=== PATIENT | male | born 1945 | race Caucasian/White ===

== ENCOUNTER → 2018-09-27 07:58 | Outpatient (CLI) | payer OTHER, SELFPAY ==
[2018-09-29 13:41] LABS: Fecal Immunochemical Test NOT DETECTED
== END ==
PROVIDERS: PCP Physician Assistant; Visit Provider Physician Assistant
DX: Z12.11 Encounter for screening for malignant neoplasm of colon (principal); Z86.010 Personal history of colon polyps
CPT/HCPCS: 82274

== ENCOUNTER 2019-09-18 09:29 | Emergency (ER) | payer OTHER, SELFPAY ==
[2019-09-18 09:30] VITALS: BP 170/79; PULSE 93; RESP 12
[2019-09-18 09:36] VITALS: BP 170/79; PULSE 84; RESP 19; TEMP 36.5; O2SAT 98; BMI 25.5
--- NOTE | 2019-09-18 09:39 | DI.RAD.S_ITS ---
PROCEDURE: XR CHEST 1V INDICATIONS: chest pain TECHNIQUE: One view of the chest was acquired. COMPARISON: [facility], , CHEST 1 VIEW, 03/18/2017, 16:28. FINDINGS: Surgical changes and devices: None. Lungs and pleura: Lungs are clear. No pleural effusions or pneumothorax. Mediastinum: Mediastinal contours appear normal. Heart size is enlarged. Bones and chest wall: No suspicious bony lesions. Overlying soft tissues appear unremarkable. IMPRESSION: No acute pulmonary process. Dictated by: Jamilah Garvin M.D. on 09/18/2019 at 10:06 Approved by: Jamilah Garvin M.D. on 09/18/2019 at 10:09
--- NOTE | 2019-09-18 09:42 | ED_ITS ---
HPI - Chest Pain General Chief Complaint: Chest Pain Stated Complaint: possible heart issue Time Seen by Provider: 09/18/19 09:40 Source: patient Mode of arrival: Ambulatory Limitations: no limitations History of Present Illness HPI narrative: 74-year-old male who is otherwise healthy and takes no medications. Has had a prior history of atrial fibrillation but is not on any anticoagulation or medication for this. His last episode was approximately 2-3 years ago. Here for evaluation of multiple symptoms. Patient states that he has been lightheaded. Also has had a lack of energy. Occasionally has an irregular heartbeat expect she when he is at rest. Is not associated chest pain or problems breathing or passing out. The symptoms been going on for least the past year. He also noticed that he has had mild chest pressure. No pain. He states that is daily. He has had it consistently for the past month. Also states he has episodes where his arm gets cold and also the toes on his right feet get cold. States he contacted his primary doctor the end of last week and was told to come to emergency department for these symptoms however he decided to wait until today. Related Data Home Medications Medication Instructions Recorded Confirmed No Known Home Medications 09/18/19 09/18/19 Allergies Allergy/AdvReac Type Severity Reaction Status Date / Time sodium fluoride Allergy Severe Shakiness Verified 09/18/19 11:08 [From PreviDent] pine zakiya Allergy Severe Difficulty Uncoded 09/18/19 11:08 Breathing Review of Systems Constitutional Constitutional: Reports chills, Reports fatigue, Denies fever(s), Denies headache(s), Reports lethargy and Reports malaise ENT Ears, Nose, Mouth, and Throat: Denies vertigo, Denies headache(s) and Reports disequilibrium Cardiovascular Cardiovascular: Reports chest pain, Denies rapid heart rate, Denies edema, Denies palpitations and Reports dyspnea Respiratory Respiratory: Reports dyspnea Gastrointestinal Gastrointestinal: Denies abdominal pain, Denies nausea and Denies vomiting Genitourinary Genitourinary: Denies dysuria Musculoskeletal Musculoskeletal: Denies myalgias, Denies arthralgias and Reports tingling Integumentary/Breasts Skin/Breast: Denies lesions and Denies rash Neurologic Neurologic: Denies confusion, Denies vertigo, Denies headache(s), Reports tingling, Reports paresthesias and Reports disequilibrium Psychiatric Psychiatric: Denies confusion Endocrine Endocrine: Reports fatigue and Denies palpitations Hematologic/Lymphatic Hematologic/Lymphatic: Denies easy bleeding and Denies easy bruising Patient History Medical History Atrial fibrillation (Inactive 02/01/13) Degeneration of intervertebral disc of cervical region (10/26/17) Elevated blood pressure reading without diagnosis of hypertension (Inactive) Flushing (Inactive) History of colonic polyps (02/01/13) History of renal calculi (Inactive 02/01/13) Hyperlipidemia (Inactive 02/01/13) Paroxysmal a-fib (Inactive) Surgical History (Updated 03/22/18 @ 05:59 by Conversion Provider) Status post hernia repair Social History Smoking Status: Never smoker alcohol intake frequency: holidays/special occasions only Substance Use Type: does not use Exam Initial Vital Signs Initial Vital Signs: Vital Signs Pulse Rate 93 H 09/18/19 09:30 Respiratory Rate 12 09/18/19 09:30 Blood Pressure 170/79 H 09/18/19 09:30 Const General: cooperative, comfortable and well developed Orientation: alert, awake and oriented x3 HENMT Head: normal to inspection and normocephalic Resp Effort & Inspection: normal respiratory effort Auscultation: clear to auscultation bilaterally Cardio Rate: regular rate Rhythm: regular rhythm Pulses: radial pulses present GI Inspection: non-distended Palpation: soft, No firm and No tender Skin Lesions: no lesions Rashes: no rashes Neuro General: awake Cognition: normal cognition Speech: speech normal Motor: muscle tone normal throughout Extrem General: normal to inspection and capillary refill normal Psych Appearance: grossly normal and well kempt Course Orders Ordered: ED Orders 09/18/19 09:39 XR chest 1V Stat 09/18/19 09:41 EKG-12 Lead Stat 09/18/19 09:50 Complete Blood Count AUTO DIFF Stat Comprehensive Metabolic Panel Stat Lipase Stat Partial Thromboplastin Time Stat Prothrombin Time INR Stat Troponin & CK Cardiac Panel Stat Discontinued Medications Aspirin (Aspirin Chew) 324 mg PO NOW ONE Stop: 09/18/19 09:45 Last Admin: 09/18/19 10:30 Dose: 324 mg Documented by: CASSY Vital Signs Vital signs: Vital Signs - 8 hr 09/18/19 09:30 09/18/19 09:36 09/18/19 10:00 Temperature 97.7 F Pulse Rate 93 H 84 77 Respiratory Rate 12 19 15 Blood Pressure 170/79 H Blood Pressure [Left Arm] 170/79 H 157/89 H Pulse Oximetry 98 94 09/18/19 10:30 09/18/19 11:00 Temperature Pulse Rate 75 72 Respiratory Rate 15 14 Blood Pressure Blood Pressure [Left Arm] 138/75 140/74 Pulse Oximetry 95 94 MDM - Chest Pain Lab Data Attestation: I reviewed the patient's lab results. Result diagrams: 09/18/19 09:50 09/18/19 09:50 Labs: Lab Results 09/18/19 09/18/19 09/18/19 Range/Units 09:50 09:50 09:50 WBC 5.5 (4.5-11.0) X10^3/uL RBC 4.86 (4.5-5.9) X10^6/uL Hgb 15.4 (13.5-17.5) g/dL Hct 43.7 (41-53) % MCV 89.9 (80-100) fL MCH 31.8 (26-34) PG MCHC 35.3 (30-36) % RDW 13.6 (11.6-14.8) % Plt Count 248 (150-400) X10^3/uL Neut % (Auto) 60.3 (50-75) % Lymph % (Auto) 28.1 (25-40) % Meriwether % (Auto) 8.5 (3-14) % Eos % (Auto) 2.6 (2-4) % Baso % (Auto) 0.5 (0-2) % Neut # (Auto) 3300 (7961-2044) /uL Lymph # (Auto) 1500 (2956-9240) /uL Mer[place]ether # (Auto) 500 (0-900) /uL Eos # (Auto) 100 (0-450) /uL Baso # (Auto) 0 (0-100) /uL PT 11.8 (10.1-12.7) SECONDS INR 1.0 (0.9-1.3) APTT 29 (26.4-36.2) SECONDS Sodium 141 (137-145) mmol/L Potassium 4.4 (3.4-5.1) mmol/L Chloride 106 (98-107) mmol/L Carbon Dioxide 26 (22-32) mmol/L BUN 22 H (9-20) mg/dL Creatinine 1.10 (0.66-1.25) mg/dL Estimated GFR > 60.0 (>60) mL/min BUN/Creatinine Ratio 20.0 (6-22) Glucose 110 (80-110) mg/dL Calcium 9.5 (8.4-10.2) mg/dL Total Bilirubin 0.6 (0.2-1.3) mg/dL AST 25 (17-59) IU/L ALT 23 (21-72) IU/L Alkaline Phosphatase 86 (38-126) U/L Total Creatine Kinase 50 L (55-170) U/L CK-MB (CK-2) TNP CK-MB (CK-2) Rel Index TNP Troponin I < 0.012 (0.01-0.034) ng/mL Total Protein 7.9 (6.3-8.2) g/dL Albumin 4.4 (3.5-5.0) g/dL Globulin 3.5 (1.7-4.1) g/dL Albumin/Globulin Ratio 1.3 (1.0-2.8) Lipase 110 (23-300) U/L Imaging Data Chest x-ray: Radiologist's impression: [place] [address] XRay Report Signed Patient: Juan Huddleston GMR#: [id number] : 4Acct:[id number] Age/Sex: 74 / MDate of Service: 09/18/19 Loc: ED Accession Number: [id number] Procedure: XR chest 1V Ordering Provider: Marc Black D.O. PROCEDURE: XR CHEST 1V INDICATIONS: chest pain TECHNIQUE: One view of the chest was acquired. COMPARISON: [facility] , CHEST 1 VIEW, 03/18/2017, 16:28. FINDINGS: Surgical changes and devices: None. Lungs and pleura: Lungs are clear. No pleural effusions or pneumothorax. Mediastinum: Mediastinal contours appear normal. Heart size is enlarged. Bones and chest wall: No suspicious bony lesions. Overlying soft tissues appear unremarkable. IMPRESSION: No acute pulmonary process. Dictated by: Jamilah Garvin M.D. on 09/18/2019 at 10:06 Approved by: Jaimlah Garvin M.D. on 09/18/2019 at 10:09 ECG Data Attestation: I personally reviewed and interpreted this ECG as follows: Prior ECG tracings: available for review Interpretation: Sinus rhythm Ventricular rate 88 Normal QRS Normal QTC ST depression V3 V4 which are new compared to prior EKG. No other new changes. MDM Narrative Medical decision making narrative: All of the patient's symptoms have been going on for greater than 30 days. Some of his symptoms to include the palpitations and lightheadedness have been going on for the past year. Has had constant chest discomfort for the past month. He does have ST depressions on his EKG however his troponin is negative. He describes no chest pain. I feel that his symptoms are less likely ACS. I did discuss with him however that it is important that he follow up with his primary doctor for a stress test. Also some concern that he potentially is having frequent PVCs due to his descriptions of the symptoms. He could potentially be having paroxysmal atrial fibrillation. He has had atrial fibrillation in the past. He had no ectopy on his monitor today. Will hold on further workup for now. I feel that there is no emergent condition given the length that he has had symptoms. He will follow up with his primary provider. He expressed understanding and agreement with plan. Discharge Plan Departure Patient Disposition: Home Clinical Impression: Lightheadedness, Intermittent palpitations Instructions: DI for Dizziness-Nonvertigo, DI for Palpitations Activity Restrictions/Additional Instructions: Recommend that you contact your primary provider to discuss the indications for a Holter monitor and stress testing. Return to the emergency department for any new or worsening symptoms Prescriptions: No Action No Known Home Medications RF: 0 Referrals: Jen Salazar PA-C [Primary Care Provider] -
[2019-09-18 10:00] VITALS: BP 157/89; PULSE 77; RESP 15; O2SAT 94
[2019-09-18 10:07] LABS: Add Manual Diff / Slide Review NO; Basophils Absolute Auto 0 /uL (0-100); Basophils Percent Auto 0.5 % (0-2); Eosinophils Absolute Auto 100 /uL (0-450); Eosinophils Percent Auto 2.6 % (2-4); Hematocrit 43.7 % (41-53); Hemoglobin 15.4 g/dL (13.5-17.5); Lymphocytes Absolute Auto 1500 /uL (1100-4500); Lymphocytes Percent Auto 28.1 % (25-40); Mean Corpuscular HGB Conc 35.3 % (30-36); Mean Corpuscular Hemoglobin 31.8 PG (26-34); Mean Corpuscular Volume 89.9 fL (80-100); Monocytes Absolute Auto 500 /uL (0-900); Monocytes Percent Auto 8.5 % (3-14); Neutrophils Absolute Auto 3300 /uL (1500-7000); Neutrophils Percent Auto 60.3 % (50-75); Platelet Count 248 X10^3/uL (150-400); Red Blood Cell Count 4.86 X10^6/uL (4.5-5.9); Red Cell Distribution Width 13.6 % (11.6-14.8); White Blood Cell Count 5.5 X10^3/uL (4.5-11.0)
[2019-09-18 10:10] LABS: Prothrombin Time 11.8 SECONDS (10.1-12.7)
[2019-09-18 10:13] LABS: PTT Partial Thromboplastin Tim 29 SECONDS (26.4-36.2)
[2019-09-18 10:15] LABS: Alanine Aminotransferase 23 IU/L (21-72); Albumin 4.4 g/dL (3.5-5.0); Albumin Globulin Ratio 1.3 (1.0-2.8); Alkaline Phosphatase 86 U/L (38-126); Aspartate Aminotransferase 25 IU/L (17-59); Bilirubin Total 0.6 mg/dL (0.2-1.3); Blood Urea Nitrogen 22 mg/dL (9-20); Calcium 9.5 mg/dL (8.4-10.2); Carbon Dioxide 26 mmol/L (22-32); Chloride 106 mmol/L (98-107); Creatine Kinase 50 U/L (55-170); Estimated Glomerular Filt Rate > 60.0 mL/min (>60); Globulin 3.5 g/dL (1.7-4.1); Glucose 110 mg/dL (80-110); HEMOLYSIS < 15 (0-50); Lipase 110 U/L (23-300); Potassium 4.4 mmol/L (3.4-5.1); Sodium 141 mmol/L (137-145); Total Protein 7.9 g/dL (6.3-8.2)
[2019-09-18 10:27] LABS: Troponin I < 0.012 ng/mL (0.01-0.034)
[2019-09-18 10:30] VITALS: BP 138/75; PULSE 75; RESP 15; O2SAT 95
[2019-09-18] MEDS: ASPIRIN 81 MG CHEW TAB 324 MG PO (10:30)
[2019-09-18 11:00] VITALS: BP 140/74; PULSE 72; RESP 14; O2SAT 94
[2019-09-18 11:30] VITALS: BP 138/79; PULSE 74; RESP 19; O2SAT 95
== END 2019-09-18 11:45 | disposition home or self-care (01) ==
PROVIDERS: Emergency Provider Emergency Medicine; Family Provider Physician Assistant; PCP Physician Assistant
DX: R42 Dizziness and giddiness (principal); R00.2 Palpitations
CPT/HCPCS: 36415; 71045; 80053; 82550; 83690; 84484; 85025; 85610; 85730; 93005; 93010; 99283; 99285

== ENCOUNTER → 2019-10-04 07:31 | Outpatient (CLI) | payer OTHER, SELFPAY ==
--- NOTE | 2019-10-20 07:56 | P.HOLT.S_ITS ---
[employer] Dressing Machine Feeder Report Referral & Results Date Patient Seen: 10/04/19 Requesting provider: Alisa Sears Indication: Dizziness Duration of monitoring (days): 7 Diary information: There were 58 patient triggered events and 0 diary entries Patient triggered events were associated with sinus rhythm, PACs, PVCs, SVT, and ventricular trigeminy Data: Minimum heart rate identified was 45 beats per minute at 11:01 on 10/05/2019 Maximum sinus heart rate was 113 beats per minute at 20:26 on 10/10/2019 Maximum overall heart rate was 171 beats per minute at 09:18 on 10/08/2019 during a 12 beat run of supraventricular tachycardia Less than 1% of identified beats were supraventricular ectopic in origin Approximately 1.3% of identified beats were ventricular ectopic in origin including up to 8.2 seconds of ventricular trigeminy which was associated with a patient triggered event as above There were 10 runs of SVT the longest lasting 13 beats at 119 beats per minute which suggest some of these runs were probably atrial tachycardia rather than true SVT Impression: Ventricular supraventricular dysrhythmias as above including relatively brief runs of ventricular trigeminy Clinical correlation suggested
== END ==
PROVIDERS: Family Provider Physician Assistant; PCP Physician Assistant; Visit Provider Hospitalist
DX: R42 Dizziness and giddiness (principal)
CPT/HCPCS: 0296T; 0298T

== ENCOUNTER → 2019-11-02 06:59 | Outpatient (CLI) | payer OTHER, SELFPAY ==
--- NOTE | 2019-11-02 08:14 | PM.TREADMILL ---
Cardiac Stress Test Report Referral & Results Date Patient Seen: 11/02/19 Time Patient Seen: 08:00 Requesting provider: Jen Salazar Indication: Chest pain Rest ECG: Normal sinus rhythm Procedure Note: Today following both written and verbal informed consent, the patient was exercised according to a standard Georges protocol. The patient exercised for a total of 7 minutes 22 seconds achieving a maximum heart rate of 152. Patient's maximum systolic blood pressure was 180. This was an estimated 10.1 METs. Mild pain in the left lower back with exercise. No other signs or symptoms of angina. Occasional PVCs. AMELIA-10% on the active scale. Diffuse [address] depressions in precordial leads. Baseline artifact while exercising makes interpretation a little bit difficult. Normal hemodynamic response to exercise. Impression: Intermediate probability for ischemia. Britt treadmill score of -2 is correlated with a 90% 5 year survival for cardiac causes. Consider Cardiolite follow-up if clinically indicated. Please note: Actual ECG tracings can be found in the PACS system.
== END ==
PROVIDERS: PCP Physician Assistant; Visit Provider Physician Assistant
DX: R07.9 Chest pain, unspecified (principal); R42 Dizziness and giddiness
CPT/HCPCS: 93016; 93017; 93018

== ENCOUNTER → 2020-01-09 06:37 | Outpatient (CLI) | payer OTHER, SELFPAY ==
[2020-01-09 09:10] LABS: Cholesterol 203 mg/dL (140-199); HDL Cholesterol 35 mg/dL (40-60); LDL Cholesterol Calculated 143 mg/dL (<100); Triglycerides 125 mg/dL (35-150)
== END ==
PROVIDERS: PCP Family Medicine; Referring Provider Internal Medicine Cardiovascular Disease; Visit Provider Internal Medicine Cardiovascular Disease
DX: I10 Essential (primary) hypertension (principal)
CPT/HCPCS: 36415; 80061

== ENCOUNTER 2020-06-13 11:21 | Emergency (ER) | payer OTHER, SELFPAY ==
[2020-06-13 11:33] VITALS: BP 172/89; PULSE 79; RESP 16; TEMP 36.9; O2SAT 98
--- NOTE | 2020-06-13 11:47 | PC.NURSE ---
Pt lacerated R anterior thumb between the 1st and 2nd joint when cutting sheet metal. refusing tetanus. wound well approximated and bleeding controlled. 2+ pulse. +CSM. Appears to need suturing for depth.
--- NOTE | 2020-06-13 11:54 | ED_ITS ---
HPI - Extremity Injury (Upper) <JIM Ballard - Last Filed: 06/13/20 13:49> General Chief Complaint: Extremity Injury, Upper Stated Complaint: cut on right hand thumb Time Seen by Provider: 06/13/20 11:36 Source: patient Mode of arrival: Ambulatory Limitations: no limitations History of Present Illness HPI narrative: The patient is a 74-year-old male nonsmoker with history of a fib who presents with a chief complaint of a laceration to his right thumb. He states he was cut by sheet metal while replacing a roof on a chicken coop. He states he has full range of motion of his right thumb. States happened approximately 90 minutes prior to arrival. The patient has never taken a tetanus vaccination in adamantly declines tetanus vaccination in today. He presents requesting Steri-Strips. He washed it out with water prior to arrival. Related Data Home Medications Medication Instructions Recorded Confirmed diltiazem HCl 120 mg 120 mg PO DAILY 01/16/20 01/16/20 capsule,extended release 24 hr Allergies Allergy/AdvReac Type Severity Reaction Status Date / Time caffeine AdvReac Verified 01/16/20 09:10 parodontax AdvReac Severe Tremors Uncoded 01/16/20 09:10 pine zakiya AdvReac Severe Difficulty Uncoded 01/16/20 09:10 Breathing Review of Systems <JIM Ballard - Last Filed: 06/13/20 13:49> Review of Systems Narrative: GENERAL: Denies chills, fatigue, malaise, fever, sweats. HEENT: Denies sinus pain, ear pain, sore throat, difficulty swallowing, dizziness. RESPIRATORY: Denies dyspnea, cough, wheezing, hemoptysis, sputum. CARDIOVASCULAR: Denies chest pain, palpitations, orthopnea, edema, GASTROINTESTINAL: Denies nausea, vomiting, abdominal pain, diarrhea, constipation, melena. : Denies dysuria, frequency, incontinence, hematuria, urinary retention. MUSCULOSKELETAL: See HPI SKIN: See HPI NEUROLOGIC: Denies weakness, headache, numbness, change in speech, confusion, seizures, incoordination. PSYCHIATRIC: No concerning psychosocial issues. 12 point review of systems is negative except for those stated above Patient History <JIM Ballard - Last Filed: 06/13/20 13:49> Medical History Atrial fibrillation (Inactive 02/01/13) Degeneration of intervertebral disc of cervical region (10/26/17) Elevated blood pressure reading without diagnosis of hypertension (Inactive) Flushing (Inactive) History of colonic polyps (02/01/13) History of renal calculi (Inactive 02/01/13) Hyperlipidemia (Acute 02/01/13) Paroxysmal a-fib (Chronic) Surgical History Status post hernia repair Social History Smoking Status: Never smoker Smoking Status: Never smoker alcohol intake frequency: holidays/special occasions only Substance Use Type: does not use Exam <ADA Ballard - Last Filed: 06/13/20 13:49> Narrative Exam Narrative: GENERAL: This is a well-nourished, well-developed patient, in no acute distress HEAD: Atraumatic. Normocephalic. No temporal or scalp tenderness. EYES: Pupils equal round and reactive. Extraocular motions intact. No scleral icterus. No injection or drainage. ENT: Nose without bleeding, purulent drainage or septal hematoma. Airway patent. NECK: Trachea midline. No JVD or lymphadenopathy. Supple, nontender, no meningeal signs. CARDIOVASCULAR: Regular rate and rhythm RESPIRATORY: No cough. No increased respiratory effort. No accessory muscle use. EXTREMITIES: Laceration as noted on right anterior thumb. Able to flex and extend right thumb against resistance. Capillary refill less than 2 seconds right thumb. Positive right radial pulse. BACK: Nontender without deformity or crepitance. No flank tenderness. NEURO: AOx3. SKIN: 2 cm linear laceration on anterior aspect right thumb between 1st and 2nd joints. Slight adipose tissue noted. Linear. No obvious foreign body. Initial Vital Signs Initial Vital Signs: Vital Signs Temperature 98.4 F 06/13/20 11:33 Pulse Rate 79 06/13/20 11:33 Respiratory Rate 16 06/13/20 11:33 Blood Pressure 172/89 H 06/13/20 11:33 Pulse Oximetry 98 06/13/20 11:33 <Sanjay Elena MD - Last Filed: 06/14/20 08:02> Initial Vital Signs Initial Vital Signs: Vital Signs Temperature 98.4 F 06/13/20 11:33 Pulse Rate 79 06/13/20 11:33 Respiratory Rate 16 06/13/20 11:33 Blood Pressure 172/89 H 06/13/20 11:33 Pulse Oximetry 98 06/13/20 11:33 Procedures <ADA Ballard - Last Filed: 06/13/20 13:49> Laceration Repair Laceration 1: Site: hand Side (If applicable): right Description: linear Depth: simple, single layer Pre-repair: wound explored, irrigated extensively (betasept ) and deep structures intact Skin layer closed with: steri-strips Scores <ADA Ballard - Last Filed: 06/13/20 13:49> GCS Enzo coma scale eye opening: Spontaneous [place] coma scale verbal response: Orientated [place] coma scale motor response: Obey commands Enzo coma scale total score: 15 Course <ADA Ballard - Last Filed: 06/13/20 13:49> Vital Signs Vital signs: Vital Signs - 8 hr 06/13/20 11:33 Temperature 98.4 F Pulse Rate 79 Respiratory Rate 16 Blood Pressure 172/89 H Pulse Oximetry 98 <Sanjay Elena MD - Last Filed: 06/14/20 08:02> Vital Signs Vital signs: Vital Signs - 8 hr 06/13/20 11:33 Temperature 98.4 F Pulse Rate 79 Respiratory Rate 16 Blood Pressure 172/89 H Pulse Oximetry 98 MDM - Extremity Injury (Upper) <ADA Ballard - Last Filed: 06/13/20 13:49> MDM Narrative Medical decision making narrative: The patient is a 74-year-old male who presents with a chief complaint of laceration to his right anterior thumb. He has full range of motion. Patient declines x-ray. Discussed possibility of foreign body, chip fracture, but patient states that the metal as ?clean and brand new.I discussed that does not necessarily indicate bacteria, and he allowed us to clean with Hibiclens and beta septic. Patient adamantly declined tetanus vaccination despite multiple offers, stating he never gets phlegm, has a grade immune system, does not get the flu vaccination and never gets the flu. The patient is neurovascular intact and has full range of motion. The patient declines sutures, I discussed repeatedly that I feel sutures would close this wound better, especially given that it opened slightly when he bends his thumb. He also has visible adipose tissue, however the patient repeatedly declined sutures but is willing to accept Steri-Strips. I discussed at length monitoring for signs and symptoms of infection redness swelling discharge etcetera. Encouraged follow-up with primary care provider if needed. The patient repeatedly declined sutures and tetanus vaccination. Patient has no questions or concerns upon discharge and states understanding of return precautions as well as follow-up care. Discharge Plan Departure Patient Disposition: Home Clinical Impression: Laceration Discharge Date/Time: 06/13/20 12:20 Instructions: DI for Laceration Repair-Skin Closure Strips Activity Restrictions/Additional Instructions: Thank you for trusting us with your care today. Please follow-up with primary care provider if needed. Please keep your laceration clean and dry. Do not submerging laceration and dirty water such as full water crouch water etcetera. This can increase her chance of infection. Monitor for signs and symptoms of infection such as redness purulent drainage etcetera. Please come back to the emergency department for any acute concerns Prescriptions: No Action diltiazem HCl 120 mg capsule,extended release 24hr 120 mg PO DAILY RF: 0 Referrals: Joseph Carr, [Primary Care Provider] -
--- NOTE | 2020-06-13 12:11 | PC.NURSE ---
pt refusing sutures. steri stripped by Aleta. refusing tetanus. Bulky dressing applied.
== END 2020-06-13 12:20 | disposition home or self-care (01) ==
PROVIDERS: Emergency Provider Nurse Practitioner Family; PCP Family Medicine
DX: S61.011A Laceration without foreign body of right thumb without damage to nail, initial encounter (principal); W26.8XXA Contact with other sharp object(s), not elsewhere classified, initial encounter
CPT/HCPCS: 99281

== ENCOUNTER → 2021-04-15 12:55 | Outpatient (CLI) | payer OTHER, SELFPAY ==
[2021-04-15 14:01] LABS: Hematocrit 44.6 % (41-53); Mean Corpuscular HGB Conc 33.7 % (30-36); Mean Corpuscular Hemoglobin 31.2 PG (26-34); Mean Corpuscular Volume 92.4 fL (80-100); Platelet Count 255 X10^3/uL (150-400); Red Blood Cell Count 4.82 X10^6/uL (4.5-5.9); Red Cell Distribution Width 13.6 % (11.6-14.8); White Blood Cell Count 6.8 X10^3/uL (4.5-11.0)
[2021-04-15 14:11] LABS: Hemoglobin A1C% w Est Avg Glu 5.6 % (4.0-6.0)
[2021-04-15 14:43] LABS: Alanine Aminotransferase 17 IU/L (<50); Albumin 4.2 g/dL (3.5-5.0); Albumin Globulin Ratio 1.2 (1.0-2.8); Alkaline Phosphatase 94 U/L (38-126); Aspartate Aminotransferase 25 IU/L (17-59); BUN Creatinine Ratio 17.1 (6-22); Bilirubin Total 0.4 mg/dL (0.2-1.3); Blood Urea Nitrogen 18 mg/dL (9-20); Calcium 9.6 mg/dL (8.4-10.2); Carbon Dioxide 30 mmol/L (22-32); Chloride 106 mmol/L (98-107); Estimated Glomerular Filt Rate > 60.0 mL/min (>60); Globulin 3.6 g/dL (1.7-4.1); Glucose 94 mg/dL (80-110); HEMOLYSIS < 15 (0-50); Potassium 5.2 mmol/L (3.4-5.1); Sodium 141 mmol/L (137-145); Total Protein 7.8 g/dL (6.3-8.2)
[2021-04-15 15:19] LABS: TSH w/ Reflex to FT4 1.59 uIU/mL (0.47-4.68)
[2021-04-15 15:32] LABS: Vitamin B12 347 pg/mL (239-931)
== END ==
PROVIDERS: PCP Family Medicine; Referring Provider Registered Nurse Diabetes Educator; Visit Provider Registered Nurse Diabetes Educator
DX: R20.2 Paresthesia of skin (principal); I10 Essential (primary) hypertension
CPT/HCPCS: 36415; 80053; 82607; 83036; 84443; 85027

== ENCOUNTER → 2021-04-23 17:32 | Outpatient (CLI) | payer OTHER, SELFPAY ==
--- NOTE | 2021-04-23 17:35 | DI.MRI.S_ITS ---
PROCEDURE: MR HEAD/BRAIN WO CON INDICATIONS: Head pressure and headache, balance issues TECHNIQUE: Non-contrast axial T1 spin echo, axial T2 fast spin echo, sagittal and axial FLAIR, coronal T2 fast spin echo, axial gradient echo, axial diffusion and ADC through the brain. COMPARISON: None. FINDINGS: Image quality: Excellent. CSF spaces: Ventricles appear symmetric in size and shape. Basal cisterns are patent. No extra-axial fluid collections. Brain: No intracranial bleeds or mass effects. There is cerebral volume loss for age. There are periventricular and deep white matter chronic small vessel ischemic changes. Brainstem appears normal. Diffusion-weighted images show no acute ischemic insults. No chronic ischemic insults. Normal intravascular flow voids are present. Skull and face: Calvarial bone marrow is normal in signal. Orbits are normal. Sinuses: Sinuses and mastoids are predominantly clear. IMPRESSION: No acute intracranial finding or other abnormality to explain symptoms. Mild global cerebral volume loss and chronic microvascular ischemic change. Dictated by: Remy Galaviz M.D. on 04/24/2021 at 9:01 Approved by: Remy Galaviz M.D. on 04/24/2021 at 9:03
== END ==
PROVIDERS: PCP Family Medicine; Referring Provider Registered Nurse Diabetes Educator; Visit Provider Registered Nurse Diabetes Educator
DX: R51.9 Headache, unspecified (principal); R26.89 Other abnormalities of gait and mobility; R42 Dizziness and giddiness
CPT/HCPCS: 70551

== ENCOUNTER 2021-11-06 21:39 | Observation (INO) | payer OTHER, SELFPAY ==
[2021-11-06 21:44] VITALS: PULSE 102; RESP 16; O2SAT 96
[2021-11-06 21:45] VITALS: BP 211/102; PULSE 100; PULSE 102; RESP 15; RESP 18; TEMP 37; O2SAT 93; O2SAT 95; BMI 24.4
--- NOTE | 2021-11-06 21:48 | DI.RAD.S_ITS ---
PROCEDURE: XR CHEST 1V INDICATIONS: chest pain TECHNIQUE: One view of the chest was acquired. COMPARISON: [facility], CR, XR CHEST 1V, 09/18/2019, 9:42. FINDINGS: Surgical changes and devices: None. Lungs and pleura: Shallow inspiration. Bibasilar atelectasis. No focal infiltrate. No pleural effusions or pneumothorax. Mediastinum: Mediastinal contours appear normal. Heart size is normal. Bones and chest wall: No suspicious bony lesions. Overlying soft tissues appear unremarkable. IMPRESSION: No acute cardiopulmonary disease. Dictated by: Kody Akins M.D. on 11/06/2021 at 22:25 Approved by: Kody Akins M.D. on 11/06/2021 at 22:25
--- NOTE | 2021-11-06 21:50 | ED.CHESTPAIN ---
HPI - Chest Pain General Chief Complaint: Chest Pain Stated Complaint: chest pain Time Seen by Provider: 11/06/21 21:47 Source: patient Mode of arrival: Ambulatory History of Present Illness HPI narrative: Patient is a 76-year-old male who presents his with chest palpitations. He has a history of hypertension for which he takes amlodipine for. He has had some issues with this most her recent 1st [employer] however the pharmacist has reassured him is by the same any fracture in the same dose. He took himself off of it for a couple of days but took a pill this morning. Throughout the day he has had intermittent chest palpitations he denies any shortness breath. He occasionally has a dull ache in his chest which lasts for 1-2 seconds. He has no nausea or vomiting. He denies any back pain no abdominal pain Related Data Home Medications Medication Instructions Recorded Confirmed amlodipine 5 mg tablet 5 mg PO DAILY 11/06/21 11/06/21 Allergies Allergy/AdvReac Type Severity Reaction Status Date / Time caffeine AdvReac Verified 11/06/21 21:47 parodontax AdvReac Severe Tremors Uncoded 11/06/21 21:47 pine zakiya AdvReac Severe Difficulty Uncoded 11/06/21 21:47 Breathing Review of Systems Review of Systems Narrative: GENERAL: Denies chills, fatigue, malaise, fever, sweats, travel HEENT: Denies sinus pain, ear pain, sore throat, difficulty swallowing, neck pain RESPIRATORY: Denies dyspnea, cough, wheezing, hemoptysis, sputum. CARDIOVASCULAR: See HPI GASTROINTESTINAL: Denies nausea, vomiting, abdominal pain, diarrhea, constipation, melena. : Denies dysuria, frequency, incontinence, hematuria, urinary retention, flank pain. MUSCULOSKELETAL: Denies weakness, joint pain, or bony pain SKIN: No rash, no erythema, no pruritus NEUROLOGIC: Denies weakness, dizziness, headache, numbness, change in speech, confusion PSYCHIATRIC: No concerning psychosocial issues. 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) Elevated blood pressure reading without diagnosis of hypertension Flushing History of colonic polyps (02/01/13) History of renal calculi (02/01/13) Hyperlipidemia (02/01/13) Hypertension Paroxysmal a-fib Surgical History Status post hernia repair Social History household members: significant other Smoking Status: Never smoker Smoking Status: Never smoker alcohol intake frequency: holidays/special occasions only Substance Use Type: does not use Exam Initial Vital Signs Initial Vital Signs: Vital Signs Pulse Rate 102 H 11/06/21 21:44 Respiratory Rate 16 11/06/21 21:44 Pulse Oximetry 96 11/06/21 21:44 GENERAL: Alert well-appearing 76-year-old male HEENT: Head atraumatic,EOMI, pupils reactive, face symmetric, moist mucous membranes CARDIOVASCULAR: Regular rate and rhythm without murmurs, rubs or gallops. RESPIRATORY: Breath sounds equal bilaterally, no wheezes rales or rhonchi. ABDOMEN: Soft, nontender. Normoactive bowel sounds all 4 quadrants. No guarding or rebound. EXTREMITIES: Normal range of motion, no clubbing or edema. Neurovascularly intact NEUROLOGICAL: Alert and oriented x4.Normal gait and speech. SKIN: Warm, dry, no laceration, no petechiae, no rashes or lesions. Course Orders Ordered: ED Orders 11/06/21 21:48 XR chest 1V Stat EKG-12 Lead Stat 11/06/21 21:50 Complete Blood Count AUTO DIFF Stat Comprehensive Metabolic Panel Stat Lipase Stat Magnesium Stat Troponin & CK Cardiac Panel Stat 11/06/21 23:50 Trop I [Troponin I] Stat Acetaminophen (Acetaminophen 325 Mg Tablet) 650 mg PO Q6HR PRN PRN Reason: Fever/Mild Pain (1-3) Hydrocodone Bitart/Acetaminophen (Hydrocodone/Acet 5/325 Tablet) 1 tab PO Q4HR PRN PRN Reason: Pain, Moderate (4-6) Al Hydrox/Mg Hydrox/Simethicone (Mag Hydrox/Alum/Simeth 30 Ml Udc) 30 ml PO Q6HR PRN PRN Reason: Dyspepsia Amlodipine Besylate (Amlodipine 5 Mg Tablet) 5 mg PO DAILY DARSHAN Morphine Sulfate (Morphine 2 Mg/Ml Inj) 2 mg IV Q4HR PRN PRN Reason: Pain, Severe (7-10) Naloxone HCl (Naloxone 0.4 Mg/Ml Vial) 0.2 mg IV Q2MIN PRN PRN Reason: Opiate Reversal Ondansetron HCl (Ondansetron 4 Mg Odt) 4 mg PO Q8HR PRN PRN Reason: Nausea And Vomiting Discontinued Medications Aspirin (Aspirin 81 Mg Chew Tab) 324 mg PO NOW ONE Stop: 11/06/21 22:56 Last Admin: 11/06/21 22:57 Dose: Not Given Documented by: LORENE Aspirin (Aspirin 81 Mg Chew Tab) 324 mg PO NOW ONE Stop: 11/06/21 22:56 Last Admin: 11/06/21 23:00 Dose: 324 mg Documented by: LORENE Nitroglycerin (Nitroglycerin 0.4 Mg Sl Tab) 0.4 mg SL NOW ONE Stop: 11/06/21 22:56 Last Admin: 11/06/21 23:00 Dose: 0.4 mg Documented by: LORENE Vital Signs Vital signs: Vital Signs - 8 hr 11/06/21 21:44 11/06/21 21:45 11/06/21 22:00 Temperature 98.6 F Pulse Rate 102 H 102 H 89 Respiratory Rate 16 15 18 Blood Pressure 211/102 H 184/74 H Pulse Oximetry 96 93 95 11/06/21 22:30 11/06/21 23:00 11/06/21 23:30 Temperature Pulse Rate 89 86 89 Respiratory Rate 20 Blood Pressure 171/82 H 173/83 H 155/84 H Pulse Oximetry 94 94 94 11/07/21 00:00 11/07/21 00:30 11/07/21 00:31 Temperature Pulse Rate 85 82 83 Respiratory Rate 24 16 Blood Pressure 157/85 H 177/77 H Pulse Oximetry 95 94 96 MDM - Chest Pain Lab Data Result diagrams: 11/06/21 21:50 11/06/21 21:50 Labs: Lab Results 11/06/21 11/06/21 11/06/21 Range/Units 21:50 21:50 23:50 WBC 7.4 (4.5-11.0) X10^3/uL RBC 4.71 (4.5-5.9) X10^6/uL Hgb 14.8 (13.5-17.5) g/dL Hct 42.3 (41-53) % MCV 89.8 (80-100) fL MCH 31.4 (26-34) PG MCHC 35.0 (30-36) % RDW 13.5 (11.6-14.8) % Plt Count 253 (150-400) X10^3/uL Neut % (Auto) 67.9 (50-75) % Lymph % (Auto) 21.5 L (25-40) % Appling % (Auto) 7.9 (3-14) % Eos % (Auto) 2.2 (2-4) % Baso % (Auto) 0.5 (0-2) % Neut # (Auto) 5000 (5913-6824) /uL Lymph # (Auto) 1600 (7378-2907) /uL Appling # (Auto) 600 (0-900) /uL Eos # (Auto) 200 (0-450) /uL Baso # (Auto) 0 (0-100) /uL Sodium 140 (137-145) mmol/L Potassium 4.2 (3.4-5.1) mmol/L Chloride 108 H (98-107) mmol/L Carbon Dioxide 28 (22-32) mmol/L BUN 21 H (9-20) mg/dL Creatinine 1.09 (0.66-1.25) mg/dL Estimated GFR > 60.0 (>60) mL/min BUN/Creatinine Ratio 19.3 (6-22) Glucose 126 H (80-110) mg/dL Calcium 9.5 (8.4-10.2) mg/dL Magnesium 2.1 (1.6-2.3) mg/dL Total Bilirubin 0.4 (0.2-1.3) mg/dL AST 24 (17-59) IU/L ALT 23 (<50) IU/L Alkaline Phosphatase 80 (38-126) U/L Total Creatine Kinase 76 (55-170) U/L CK-MB (CK-2) TNP CK-MB (CK-2) Rel Index TNP Troponin I 0.062 H 0.065 H (0.01-0.034) ng/mL Total Protein 8.0 (6.3-8.2) g/dL Albumin 4.4 (3.5-5.0) g/dL Globulin 3.6 (1.7-4.1) g/dL Albumin/Globulin Ratio 1.2 (1.0-2.8) Lipase 134 (23-300) U/L Imaging Data Chest x-ray: Radiologist's Impression: PROCEDURE:? XR CHEST 1V ? INDICATIONS:? chest pain ? TECHNIQUE:? One view of the chest was acquired.? ? COMPARISON:? [facility], CR, XR CHEST 1V, 09/18/2019, 9:42. ? FINDINGS:? ? Surgical changes and devices:? None.? ? Lungs and pleura:? Shallow inspiration.? Bibasilar atelectasis.? No focal infiltrate.? No pleural effusions or pneumothorax.? ? Mediastinum:? Mediastinal contours appear normal.? Heart size is normal.? ? Bones and chest wall:? No suspicious bony lesions.? Overlying soft tissues appear unremarkable.? ? IMPRESSION:? No acute cardiopulmonary disease. ? ? Dictated by: Kody Akins M.D. on 11/06/2021 at 22:25 ? ? Approved by: Kody Akins M.D. on 11/06/2021 at 22:25 ? ECG Data Interpretation: EKG 1. Sinus rhythm rate 98 NJ interval 140 QRS [address] changes or T-wave inversions no depressions or elevations, similar to prior in 2019 2. Sinus rhythm rate 86 NJ interval 148 QRS [address] changes MDM Narrative Medical decision making narrative: Patient is complaining of intermittent palpitations with some mild chest discomfort. His chest discomfort is brief. 1st troponin returns is in the indeterminate range of 0.062, he has no EKG changes. He is given aspirin and nitroglycerin he has not had any recurrence of symptoms. Repeat troponin remains the same slightly elevated at 0.065. Patient's blood pressure has come down. He has no back pain I do not have any concern for dissection at this time. He is complaining of palpitations however very infrequent PVCs are noted and he remains in sinus rhythm. He states previously he had atrial fibrillation more than 20 years ago and that was due to increased caffeine. Spoke to hospitalist who agrees with observation for chest pain rule out. Discharge Plan Departure Patient Disposition: Admitted as Observation Clinical Impression: Chest pain Admit Date/Time: 11/07/21 00:44 Admit Provider: Celeste Triana I
[2021-11-06 22:00] VITALS: BP 184/74; PULSE 89; RESP 18; O2SAT 95
[2021-11-06 22:01] LABS: Add Manual Diff / Slide Review NO; Basophils Absolute Auto 0 /uL (0-100); Basophils Percent Auto 0.5 % (0-2); Eosinophils Absolute Auto 200 /uL (0-450); Eosinophils Percent Auto 2.2 % (2-4); Hematocrit 42.3 % (41-53); Hemoglobin 14.8 g/dL (13.5-17.5); Lymphocytes Absolute Auto 1600 /uL (1100-4500); Lymphocytes Percent Auto 21.5 % (25-40); Mean Corpuscular Hemoglobin 31.4 PG (26-34); Mean Corpuscular Volume 89.8 fL (80-100); Monocytes Absolute Auto 600 /uL (0-900); Monocytes Percent Auto 7.9 % (3-14); Neutrophils Absolute Auto 5000 /uL (1500-7000); Neutrophils Percent Auto 67.9 % (50-75); Platelet Count 253 X10^3/uL (150-400); Red Blood Cell Count 4.71 X10^6/uL (4.5-5.9); Red Cell Distribution Width 13.5 % (11.6-14.8); White Blood Cell Count 7.4 X10^3/uL (4.5-11.0)
[2021-11-06 22:10] LABS: Alanine Aminotransferase 23 IU/L (<50); Albumin 4.4 g/dL (3.5-5.0); Albumin Globulin Ratio 1.2 (1.0-2.8); Alkaline Phosphatase 80 U/L (38-126); Aspartate Aminotransferase 24 IU/L (17-59); BUN Creatinine Ratio 19.3 (6-22); Bilirubin Total 0.4 mg/dL (0.2-1.3); Blood Urea Nitrogen 21 mg/dL (9-20); Calcium 9.5 mg/dL (8.4-10.2); Carbon Dioxide 28 mmol/L (22-32); Chloride 108 mmol/L (98-107); Creatine Kinase 76 U/L (55-170); Estimated Glomerular Filt Rate > 60.0 mL/min (>60); Globulin 3.6 g/dL (1.7-4.1); Glucose 126 mg/dL (80-110); HEMOLYSIS < 15 (0-50); Lipase 134 U/L (23-300); Magnesium 2.1 mg/dL (1.6-2.3); Potassium 4.2 mmol/L (3.4-5.1); Sodium 140 mmol/L (137-145)
[2021-11-06 22:21] LABS: Troponin I 0.062 ng/mL (0.01-0.034)
[2021-11-06 22:30] VITALS: BP 171/82; PULSE 89; RESP 20; O2SAT 94
[2021-11-06 23:00] VITALS: BP 173/83; PULSE 86; PULSE 89; O2SAT 94
[2021-11-06] MEDS: ASPIRIN 81 MG CHEW TAB 324 MG PO (23:00)
[2021-11-06] MEDS: NITROGLYCERIN 0.4 MG SL TAB SL (23:00)
[2021-11-06 23:30] VITALS: BP 155/84; PULSE 89; O2SAT 94
[2021-11-07] VITALS (7 sets, daily range): BP systolic 136–187; BP diastolic 77–88; PULSE 65–85; RESP 16–24; TEMP 36.6–36.8; O2SAT 94–97; BMI 24.7
[2021-11-07 00:21] LABS: Troponin I 0.065 ng/mL (0.01-0.034)
--- NOTE | 2021-11-07 01:21 | P.HP_ITS ---
History of Present Illness History of Present Illness Date Patient Seen: 11/07/21 Time Patient Seen: 01:00 Chief complaint: chest pain Narrative: Mr Huddleston is a 76 yo man with HTN, paroxysmal atrial fibrillation not on anticoagulation and HLD who came to the ED with symptoms of progressively more frequent and intense heart palpitations and lightheadedness over the past week. Patient started taking amlodipine about 5 weeks ago for hypertension. He initially had no problems with the medication but when he refilled it about a week ago he started to have some lightheadedness and more frequent palpitations. He stopped the amlodipine for a few days and noticed that the lightheadedness improved but the palpitations did not. He resumed the amlodipine a few days ago and felt that his palpations progressively became more intense. He could feel his heart beating strongly and heard a whooshing sound with every heart beat that he attributes to some type of valvular issue. He has also had some intermitted chest tightness associated with the palpitations and over the past 2 nights has had some hot flashes. Because of his worsening symptoms he decided to come to the ED for further evaluation. Patient states nothing seems to make his symptoms any better. They can occur at rest or when up walking around although he does notice it more at night. He denies shortness of breath. No fevers, chills, diaphoresis, nausea, vomiting, diarrhea. He reports a remote history of atrial fibrillation which improved after stopping caffeine. He has been on diltiazem in the past for palpitations but stopped taking it several weeks ago because he didn't like the way it made him feel. In the ED, the patient had elevated blood pressures with SBP 170-180. Other VS were normal. Physical exam was benign. Pertinent labs include normal CBC, normal CMP, indeterminate Troponin I of 0.065 and 0.062. ECG showed NSR and did not show any acute changes concerning for ACS. CXR was negative for any acute cardiopulmonary findings. He received ASA 324 mg and NTG SL 0.4 mg. He is referred for overnight observation and risk stratification for CAD due to his ri sk factors including age, HTN and HLD. 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) Elevated blood pressure reading without diagnosis of hypertension Flushing History of colonic polyps (02/01/13) History of renal calculi (02/01/13) Hyperlipidemia (02/01/13) Hypertension Paroxysmal a-fib Surgical History Status post hernia repair Family & Social History Safety & Behavioral: Feels Safe in Current Yes Environment Been Physically Hurt or No Threatened By a Person Tobacco & Substance use: Smoking Status Never smoker alcohol intake frequency holiday/special occasion Substance Use Type does not use Meds Home Medications and Allergies Home Medications Medication Instructions Recorded Confirmed Type amlodipine 5 mg tablet 5 mg PO DAILY 11/06/21 11/06/21 History Allergies Allergy/AdvReac Type Severity Reaction Status Date / Time caffeine AdvReac Verified 11/06/21 21:47 parodontax AdvReac Severe Tremors Uncoded 11/06/21 21:47 pine zakiya AdvReac Severe Difficulty Uncoded 11/06/21 21:47 Breathing Review of Systems Constitutional Constitutional: Denies excessive sweating, Denies fatigue and Denies headache(s) Comments: No Fever, chills, nightsweats, weight loss Eyes Comments: No eye pain, redness, change in vision ENT Ears, Nose, Mouth, and Throat: Yes dizziness, No headache(s), No hearing loss, No hoarseness and No sore throat Cardiovascular Cardiovascular: Reports chest pain at rest (mild, occasional), Denies chest pain with activity, Denies pedal edema, Reports lightheadedness, Reports palpitations, Denies dyspnea, Denies dyspnea on exertion and Denies orthopnea Respiratory Respiratory: Denies dyspnea and Denies dyspnea on exertion Gastrointestinal Gastrointestinal: Reports system reviewed and no additional complaints, except as documented Genitourinary Genitourinary: Reports system reviewed and no additional complaints, except as documented Musculoskeletal Musculoskeletal: Reports system reviewed and no additional complaints, except as documented Neurologic Neurologic: Reports dizziness and Denies headache(s) Psychiatric Psychiatric: Reports abnormal sleep pattern, Reports anxiety and Reports change in appetite Comments: Partner with recently diagnosed glioblastoma. He is her primary caregiver. He is also concerned about living in the flight pattern of the [employer] jets in [place] Endocrine Endocrine: Denies excessive sweating, Denies fatigue and Reports palpitations Hematologic/Lymphatic Hematologic/Lymphatic: Reports system reviewed and no additional complaints, except as documented Exam Vital Signs (past 8 hours): - 11/06/21 21:44 11/06/21 21:45 11/06/21 22:00 Temperature 98.6 F Pulse Rate 102 H 102 H 89 Respiratory Rate 16 15 18 Blood Pressure 211/102 H 184/74 H Pulse Oximetry 96 93 95 11/06/21 22:30 11/06/21 23:00 11/06/21 23:30 Temperature Pulse Rate 89 86 89 Respiratory Rate 20 Blood Pressure 171/82 H 173/83 H 155/84 H Pulse Oximetry 94 94 94 11/07/21 00:00 11/07/21 00:30 11/07/21 00:31 Temperature Pulse Rate 85 82 83 Respiratory Rate 24 16 Blood Pressure 157/85 H 177/77 H Pulse Oximetry 95 94 96 11/07/21 01:00 Temperature Pulse Rate 75 Respiratory Rate 20 Blood Pressure 187/88 H Pulse Oximetry 95 Oxygen Delivery Method Room Air Const General: cooperative, healthy appearing, comfortable, well developed, well groomed and No in distress [facility] Head: normal to inspection, normocephalic and atraumatic Ears: hearing grossly normal bilaterally and external ears normal Nose: external nose normal and nares normal Face and sinus: normal facial exam Mouth: oral mucosae normal, lip normal and moist mucous membranes Throat: posterior oropharynx normal and tonsils normal Eyes General: appearance normal, both eyes and all related structures Eyelids: eyelids normal Conjunctivae: conjunctivae normal Sclera: sclerae normal EOM: EOM intact bilaterally Neck Neck: normal visual inspection, full ROM, trachea midline and supple Chest Chest: normal inspection of the chest and normal palpation of entire chest wall Resp Effort & Inspection: normal respiratory effort, able to speak in complete sentences and no respiratory distress Auscultation: clear to auscultation bilaterally, no crackles, no rales, no rhonchi and no wheezes Cardio Palpation: normal PMI Rate: regular rate Rhythm: regular rhythm Heart Sounds: S1 normal, S2 normal, no gallops, no murmurs and no rubs Pulses: normal peripheral pulses GI Inspection: normal to inspection and non-distended Palpation: soft, no hepatosplenomegaly and No guarding Auscultation: normal bowel sounds Back/Spine/Pelvis Back: normal to inspection, No back tenderness and No CVA tenderness Skin General: no rashes or lesions noted, elasticity normal and turgor normal Neuro General: patient alert, patient awake, patient oriented x3 and moves all extremities Extrem General: normal to inspection, full ROM and no clubbing, cyanosis or edema Psych Appearance: grossly normal and well kempt Mental Status: mental status grossly normal Speech and Movement: speech and movement normal Mood: anxious mood Affect: normal affect Objective ECG Impression: Normal Sinus rhythm. No ST segement elevation or depression Imaging Chest x-ray: Radiologist's impression: No acute cardiopulmonary abnormalities Labs Result Diagrams: 11/06/21 21:50 11/06/21 21:50 Labs: Laboratory Results - last 24 hr 11/06/21 11/06/21 11/06/21 21:50 21:50 23:50 WBC 7.4 RBC 4.71 Hgb 14.8 Hct 42.3 MCV 89.8 MCH 31.4 MCHC 35.0 RDW 13.5 Plt Count 253 Neut % (Auto) 67.9 Lymph % (Auto) 21.5 L Hitchcock % (Auto) 7.9 Eos % (Auto) 2.2 Baso % (Auto) 0.5 Neut # (Auto) 5000 Lymph # (Auto) 1600 Hitchcock # (Auto) 600 Eos # (Auto) 200 Baso # (Auto) 0 Sodium 140 Potassium 4.2 Chloride 108 H Carbon Dioxide 28 BUN 21 H Creatinine 1.09 Estimated GFR > 60.0 BUN/Creatinine Ratio 19.3 Glucose 126 H Calcium 9.5 Magnesium 2.1 Total Bilirubin 0.4 AST 24 ALT 23 Alkaline Phosphatase 80 Total Creatine Kinase 76 CK-MB (CK-2) TNP CK-MB (CK-2) Rel Index TNP Troponin I 0.062 H 0.065 H Total Protein 8.0 Albumin 4.4 Globulin 3.6 Albumin/Globulin Ratio 1.2 Lipase 134 Assessment & Plan Assessment & Plan narrative: This is a 76 yo man with paroxysmal atrial fibrillation not on anticoagulation, HTN and HLD who came to the ED with complaints of palpitations, mild non exertional chest pressure and dizziness. Based on the ED findings, the patient is not having AMI but he does have risk factors including HTN and HLD. ECG was negative for ACS but his troponin x 2 was indeterminate. Due to his risk factors and complaints of non exertional chest pain, he will be kept in the hospital for observation and undergo myocardial perfusion stress test in the morning for risk stratification. If his stress test is negative, he can be discharged home for follow up with his Rock Crusher Operator. Other considerations include possible PE, however his Well's score is 0. He has no evidence of PNA on CXR. He has a history of PSVT which could account for his palpitations, however he is in NSR on telemetry. Stress may also be playing a factor in his symptoms as his significant other has a newly diagnosed glioblastoma and he is the primary caregiver. PLAN Non exertional chest pain and palpitations. - place in observation - continue telemetry - plan for myocardial perfusion scan in am - NPO for now - received ASA 324 mg in ED - lipid panel pending - repeat troponin with morning labs - check TSH Accelerated HTN - continue amlodipine - hold diltiazem for now as patient reported side effects Hyperglycemia, mild - check A1c - trend labs Adjustment reaction with anxiety - patient is primarily caregiver for significant other ?Question of paroxysmal atrial fibrillation - [id number] score of 3 - defer to patient's Rock Crusher Operator for anticoagulation treatment Time Spent With Patient Critical Care time: I spent a total of [] minutes of critical care time on this patient's care today; this time is exclusive of procedural time. Scores CHADS-VASc Congestive heart failure: no Hypertension: yes Age 75 years or older: yes Diabetes mellitus: no Stroke, TIA, or TE: no Vascular disease: no Age 65 to 74 years: no Sex category (female): Male CHADS-VASc Score: 3 Wells' Criteria for PE PE is #1 Dx or equally likely: No Heart rate > 100: No Immobilization at least 3 days or surg in previous 4 weeks: No History of PE or DVT: No Hemoptysis: No Malignancy w/Treatment within 6 months or palliative: No
[2021-11-07 01:44] LABS: COVID19 - ADMIT (NP swab/PCR) Negative (Negative)
--- NOTE | 2021-11-07 03:52 | PC.NURSE ---
Late Entry: Patient arrived to the unit via stretcher at 0115 from the ED. Patient was able to ambulate from the stretcher to the bed. Patient denied pain, SOB, and N/V. Patient was oriented to room, call light, and fall precautions. Patients home medication was placed in the locked drawer maker the nurse banquet food server. Bed is in lowest, locked position, and call light is within reach.
[2021-11-07 08:01] LABS: Add Manual Diff / Slide Review NO; Basophils Absolute Auto 0 /uL (0-100); Basophils Percent Auto 0.5 % (0-2); Eosinophils Absolute Auto 200 /uL (0-450); Eosinophils Percent Auto 2.9 % (2-4); Hematocrit 41.4 % (41-53); Hemoglobin 14.3 g/dL (13.5-17.5); Lymphocytes Absolute Auto 1700 /uL (1100-4500); Lymphocytes Percent Auto 29.1 % (25-40); Mean Corpuscular HGB Conc 34.7 % (30-36); Mean Corpuscular Hemoglobin 31.1 PG (26-34); Mean Corpuscular Volume 89.7 fL (80-100); Monocytes Absolute Auto 600 /uL (0-900); Monocytes Percent Auto 10.2 % (3-14); Neutrophils Absolute Auto 3300 /uL (1500-7000); Neutrophils Percent Auto 57.3 % (50-75); Platelet Count 232 X10^3/uL (150-400); Red Blood Cell Count 4.61 X10^6/uL (4.5-5.9); Red Cell Distribution Width 13.6 % (11.6-14.8); White Blood Cell Count 5.7 X10^3/uL (4.5-11.0)
[2021-11-07 08:12] LABS: BUN Creatinine Ratio 17.6 (6-22); Blood Urea Nitrogen 18 mg/dL (9-20); Calcium 8.8 mg/dL (8.4-10.2); Carbon Dioxide 29 mmol/L (22-32); Chloride 108 mmol/L (98-107); Cholesterol 186 mg/dL (140-199); Estimated Glomerular Filt Rate > 60.0 mL/min (>60); Glucose 100 mg/dL (80-110); HDL Cholesterol 37 mg/dL (40-60); HEMOLYSIS < 15 (0-50); LDL Cholesterol Calculated 130 mg/dL (<100); Magnesium 2.1 mg/dL (1.6-2.3); Potassium 4.4 mmol/L (3.4-5.1); Sodium 139 mmol/L (137-145); Triglycerides 94 mg/dL (35-150)
[2021-11-07 08:24] LABS: Hemoglobin A1C% w Est Avg Glu 5.2 % (4.0-6.0); Troponin I 0.037 ng/mL (0.01-0.034)
--- NOTE | 2021-11-07 09:31 | DI.ECHO.S_ITS ---
[facility] +---------+ : : [address] : : : : [id number] : : : : Phone: [phone]+ Echocardiogram Report + :Name: JAIMEE BARNHART Study Date: 11/07/2021 Height: 71 in : :[facility] ReadingLocation: Weight: 177 lb : : Gender: Male BSA: 2.0 m2 : :: 1945 Age: 76 yrs BP: 162/81 mmHg: :Reason For Study: Chest pain, palpitations : : Performed By: Pedro Pablo Coelho : :Referring: BROOKE MILLIGAN : + Interpretation Summary The left ventricle is normal in size. The ejection fraction is estimated to be 55-60%. The right ventricle is normal in size and function. No significant valvular pathology seen. The ascending aorta is mild-moderately enlarged. 4.2 cm in diameter. Mild atherosclerotic plaque(s) in the aortic arch. Procedure: A two-dimensional transthoracic echocardiogram with color flow and Doppler was performed. The study quality was technically adequate. The subcostal views were difficult to obtain and are suboptimal in quality. There is no prior echocardiogram noted for this patient. The patient was in normal sinus rhythm during the exam. Left Ventricle: The left ventricle is normal in size. There is mild proximal septal thickening noted. There is no echo evidence for significant left ventricular outflow tract obstruction. There is no thrombus. The ejection fraction is estimated to be 55-60%. Septal motion is consistent with conduction abnormality. Diastolic parameters suggest a relaxation abnormality of the left ventricle, consistent with probable normal filling pressures. Right Ventricle: The right ventricle is normal in size and function. Atria: Both atria are normal in size. There is no Doppler evidence for an interatrial shunt. Mitral Valve: The mitral valve is normal. There is trace mitral regurgitation. Aortic Valve: The aortic valve is trileaflet. The aortic valve opens well. There is no aortic valve stenosis. No aortic regurgitation is present. Tricuspid Valve: The tricuspid valve leaflets are thin and pliable. Fatty tricuspid annulus. There is tricuspid annular calcification. There is trace tricuspid regurgitation. Right ventricular systolic pressure is estimated to be 21 mmHg plus the clinically estimated CVP which cannot be estimated on this exam. Pulmonic Valve: The pulmonic valve leaflets are thin and pliable; valve motion is normal. There is trace pulmonic regurgitation. Great Vessels: The aortic root is normal size. The ascending aorta is mild- moderately enlarged. The aortic arch is at the upper limits of normal in size. Mild atherosclerotic plaque(s) in the aortic arch. The inferior vena cava was not visualized. Pericardium/ Pleura There is no pericardial effusion. There is an anterior echo-free space consistent with a fat pad. There is no pleural effusion. MMode/2D Measurements & Calculations LVIDd: 4.1 cm LVOT diam: 1.9 cm LVIDs: 2.2 cm Ao root diam: 3.3 cm FS: 44.8 % asc Aorta Diam: 4.2 cm IVSd: 1.3 cm Ao Arch Diam (Prox Trans): 3.5 cm LVPWd: 1.0 cm LV salas. diameter/BSA (cm/m^2): 2.0 LV sys. diameter/BSA (cm/m^2): 1.1 LA A2 area: 12.7 cm2 RA long axis: 4.6 cm LA A4 area: 18.7 cm2 RA area: 11.9 cm2 LA length (vol): 5.6 cm RA vol: 26.3 ml LA vol: 36.0 ml RA : 13.1 ml/m2 LA vol index: 18.0 ml/m2 TAPSE: 2.6 cm Doppler Measurements & Calculations Ao V2 max: 112.1 cm/sec LVOT Max Leobardo: 119.7 cm/sec Ao V2 mean: 84.1 cm/sec LV V1 max P.7 mmHg Ao max P.0 mmHg LV V1 VTI: 27.2 cm Ao mean P.0 mmHg CARLOS(I,D): 2.8 cm2 Ao V2 VTI: 27.9 cm CARLOS(V,D): 3.0 cm2 sev ratio: 0.98 CARLOS indexed to BSA (cm^2/m^2): 1.4 MV E max leobardo: 68.1 cm/sec TR max leobardo: 227.8 cm/sec MV A max leobardo: 86.9 cm/sec TR max P.8 mmHg MV E/A: 0.78 PA V2 max: 52.8 cm/sec Med Peak E' Leobardo: 5.1 cm/sec PA V2 mean: 40.6 cm/sec E/E' med: 13.3 PA mean P.69 mmHg Lat Peak E' Leobardo: 7.9 cm/sec PA pr(Accel): 31.0 mmHg E/E' lat: 8.6 E/e' average: 10.9 MV dec time: 0.23 sec [facility] 76.9 ml Reading Physician:12:23 PM
[2021-11-07] MEDS: AMLODIPINE 5 MG TABLET PO (09:42)
[2021-11-07 09:43] LABS: TSH w/ Reflex to FT4 2.67 uIU/mL (0.47-4.68)
[2021-11-07] MEDS: FAMOTIDINE 20 MG TABLET PO (11:32)
[2021-11-07] MEDS: SUCRALFATE 1 GM TABLET PO ×2 (11:32→16:40)
--- NOTE | 2021-11-07 12:13 | PC.NURSE ---
Assess- Patient denies chest pain, nausea, or sob. He is up independently to the bathroom. He had a bowel movement and voided. Patients troponins are trending down. Patient will be going down to his stress test around 1230, he is npo except water and no food or caffeine. Patients life long partner has cancer, and patient gets emotional and cries if anybody talks about this with him. Resting in bed comfortably now. Echo has been done, and patient will also have an ultrasound done later on after stress test.
--- NOTE | 2021-11-07 14:35 | CM.DANOTE ---
DCP Assessment: Patient is a 76 yr old male who was admitted for Chest Pain r/o. CM met the patient at the bedside and explained role. Patient was alert and oriented x4 during CM visit. patient currently lives in [place] in a single level home in [place] with his significant other Georgie. patient states he is independent at baseline with all ADLs and drives. Patient is his significant others caregiver currently while she is dealing with terminal brain cancer. patient is very emotional when discussing this. Patient stated he thinks his chest pain over the last week is related to stress associated with his significant others medical condition. patient is pending ECHO, utra sound and stress test results. during AM rounds CM was told patient would be DC this afternoon if all test came back WNL. I: [place] and self pay Plan: DC home with significant other when medically stable - no identified DC planning needs. CM will follow to assist with any new DC planning needs that may arise. Violeta Chapman Discharge Planning/Care Management CM Discharge Assessment Start: 11/07/21 14:34 Freq: Status: Active Protocol: Document 11/07/21 14:34 HS (Rec: 11/07/21 14:35 HS [id number]) Discharge Planning Assessment Assigned Forest Supervisor Violeta Chapman DPOA/Assigned Designee Name Georgie Perez ( life partner) Contact Information [phone] Advance Directives? Yes Advance Directives on File Yes: Patient states it is on file History Provided By Patient,Medical Record Has Patient been admitted in last 30 No days? Prior Living Arrangements House Household Members significant other Type of transporation used prior to Drives own vehicle admit Independent with ADL's Yes Is patient alert and oriented? Yes Caregiver for Another Yes: Patient cared for his significant other who has stage 4 brain cancer Barriers to Discharge No Discharge Plan Home Referrals Initiated None needed Whiteboard Updated in Patient Room with Yes name and ext. # of Forest Supervisor Review Status In Process Next Review Type Continued Stay Review
--- NOTE | 2021-11-07 17:05 | P.DS_ITS ---
History of Present Illness History of Present Illness Date Patient Seen: 11/07/21 Chief complaint: chest pain Narrative: History of Present Illness History of Present Illness Date Patient Seen:?11/07/21 Time Patient Seen:?01:00 Narrative: Mr Huddleston is a 76 yo man with HTN, paroxysmal atrial fibrillation not on anticoagulation and HLD who came to the ED with symptoms of progressively more frequent and intense heart palpitations and lightheadedness over the past week.? Patient started taking amlodipine about 5 weeks ago for hypertension.? He initially had no problems with the medication but when he refilled it about a week ago he started to have some lightheadedness and more frequent palpitations.? He stopped the amlodipine for a few days and noticed that the lightheadedness improved but the palpitations did not.? He resumed the amlodipine a few days ago and felt that his palpations progressively became more intense.? He could feel his heart beating strongly and heard a whooshing sound with every heart beat that he attributes to some type of valvular issue.? He has also had some intermitted chest tightness associated with the palpitations and over the past 2 nights has had some hot flashes.? Because of his worsening symptoms he decided to come to the ED for further evaluation.? Patient states nothing seems to make his symptoms any better.? They can occur at rest or when up walking around although he does notice it more at night.? He denies shortness of breath.? No fevers, chills, diaphoresis, nausea, vomiting, diarrhea.? He reports a remote history of atrial fibrillation which improved after stopping caffeine.? He has been on diltiazem in the past for palpitations but stopped taking it several weeks ago because he didn't like the way it made him feel.? In the ED, the patient had elevated blood pressures with SBP 170-180.? Other VS were normal.? Physical exam was benign.? Pertinent labs include normal CBC, normal CMP, indeterminate Troponin I of 0.065 and 0.062.? ECG showed NSR and did not show any acute changes concerning for ACS.? CXR was negative for any acute cardiopulmonary findings.? He received ASA 324 mg and NTG SL 0.4 mg.? He is referred for overnight observation and risk stratification for CAD due to his risk factors including age, HTN and HLD.? 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 PSH Hernia repair FM[facility] Father of colon CA age 76 Mother at age 92 from old age Discharge Providers Provider Date of admission: 11/07/21 00:44 Discharge Date: 11/07/21 Primary care physician: Joseph Carr DO Discharge provider: Lesa Keller DO Summary Hospital Course Discharge Diagnosis: NSTEMI. TREATED MEDICALLY ANXIETY. PATIENT REPORTED MAJOR FAMILY STRESS HYPERLIPIDEMIA HYPERTENSION PER HISTORY Hospital Course: THIS IS A PLEASANT 76-YEAR-OLD MALE ADMITTED TO THE HOSPITAL WITH ATYPICAL CHEST DISCOMFORT. HE REPORTED SOME TYPE OF CHEST PALPITATION ONGOING FOR LAST FEW DAYS. HIS TROPONIN WAS WITHIN ACCEPTABLE VALUES ON ADMISSION HOWEVER BECAME ELEVATED SLIGHTLY ON REPEAT TESTING. SUBSEQUENT REPEAT TESTING DID SHOW ONCE AGAIN DECREASE IN THE TROPONIN LEVEL. I SUSPECT A NON STEMI. PATIENT HAD A ECHOCARDIOGRAM WHICH WAS UNREMARKABLE PER ALSO HAD A CHEMICAL STRESS TEST WHICH WAS ALSO WITHOUT SIGNIFICANT FINDINGS. A CAROTID ULTRASOUND WAS ORDERED FOR COMPLETENESS HOWEVER PATIENT DECLINED. HE NEEDED TO GO HOME TO TAKE CARE OF HIS WHO IS DYING FROM CANCER. HE WILL BE DISCHARGED ON A BETA-LEYDA. A STATIN ALSO ORDERED ALONG WITH FISH OIL. ASPIRIN HAS BEEN ORDERED WELL. PATIENT IS A WELL FOR FINDINGS. HE WILL FOLLOW-UP WITH HIS STATE MANAGER OUTPATIENT [facility] FOR FURTHER WORKUP WHICH COULD INCLUDE A LEFT HEART CATHETERIZATION IF INDICATED CLINICALLY PATIENT WILL NEED TO FOLLOW UP WITH HIS OUTPATIENT CARDIOLOGY WITHIN 1-2 WEEKS. HE WILL NEED TO CALL THE STATE MANAGER'S OFFICE TO SCHEDULE HIS FOLLOW-UP APPOINTMENT RECOMMENDED AT THIS TIME, HE IS ASYMPTOMATIC. NO SIGNIFICANT DISEASE NOTED IN TELEMETRY. ADDITIONAL MANAGEMENT WILL BE DEFERRED TO HIS OUTPATIENT PROVIDERS Status at Discharge Cognitive/behavioral status at discharge: oriented Functional status at discharge: independent ambulation Overall status at discharge: patient is back to baseline Time Spent with Patient Time spent: Greater than 30 minutes Exam Vital Signs (past 8 hours): - 11/07/21 16:07 Temperature 98 F Pulse Rate 73 Respiratory Rate 16 Blood Pressure 147/82 H Pulse Oximetry 97 Oxygen Delivery Method Room Air Oxygen Flow Rate 0 Narrative Exam Narrative: NO ACUTE DISTRESS. PATIENT IS ALERT ORIENTED X3. VITAL SIGNS STABLE HEAD ATRAUMATIC NORMOCEPHALIC NECK : SUPPLE WITHOUT ADENOPATHY NO CAROTID BRUITS EYE: EOMI, PERRLA, NORMAL CONJUNCTIVA; NO JAUNDICE CHEST: REGULAR RATE. NO RUBS. PMI IS NON DISPLACED. NO MURMURS; NORMAL S1- S2 PULMONARY: DECREASED BS OVER THE BASES. MILD BIBASILAR CRACKLES NOTED; NO INCREASED DULLNESS TO PERCUSSION ABDOMEN: SOFT. NONTENDER. NONDISTENDED. BOWEL SOUNDS ARE PRESENT IN ALL 4 QUADRANTS. NO MASS. EXTREMITIES: NO EDEMA.. NO CYANOSIS CLUBBING NOTED. NEURO: CRANIAL NERVES 2-12 GROSSLY INTACT. NO FOCAL NEUROLOGICAL DEFICIT NOTED. MSK: NORMAL RANGE OF MOTION FOR AGE. NO JOINT EFFUSION. SKIN: NORMAL FOR ETHNICITY; NO ECCHYMOSIS. NO LESION. GOOD TURGOR.; NO RASHES : NORMAL EXTERNAL GENITALIA. PSYCH : APPROPRIATE MOOD AND AFFECT. ALERT AWAKE ORIENTED X3 Objective Labs Result Diagrams: 11/07/21 07:37 11/07/21 07:37 Labs: Laboratory Results - last 24 hr 11/06/21 11/06/21 11/06/21 21:50 21:50 23:50 WBC 7.4 RBC 4.71 Hgb 14.8 Hct 42.3 MCV 89.8 MCH 31.4 MCHC 35.0 RDW 13.5 Plt Count 253 Neut % (Auto) 67.9 Lymph % (Auto) 21.5 L [place] % (Auto) 7.9 Eos % (Auto) 2.2 Baso % (Auto) 0.5 Neut # (Auto) 5000 Lymph # (Auto) 1600 [place] # (Auto) 600 Eos # (Auto) 200 Baso # (Auto) 0 Sodium 140 Potassium 4.2 Chloride 108 H Carbon Dioxide 28 BUN 21 H Creatinine 1.09 Estimated GFR > 60.0 BUN/Creatinine Ratio 19.3 Glucose 126 H Hemoglobin A1c Calcium 9.5 Phosphorus Magnesium 2.1 Total Bilirubin 0.4 AST 24 ALT 23 Alkaline Phosphatase 80 Total Creatine Kinase 76 CK-MB (CK-2) TNP CK-MB (CK-2) Rel Index TNP Troponin I 0.062 H 0.065 H Total Protein 8.0 Albumin 4.4 Globulin 3.6 Albumin/Globulin Ratio 1.2 Triglycerides Cholesterol LDL Cholesterol, Calc HDL Cholesterol Lipase 134 TSH SARS-CoV-2 (PCR) 11/07/21 11/07/21 11/07/21 00:45 07:37 07:37 WBC 5.7 RBC 4.61 Hgb 14.3 Hct 41.4 MCV 89.7 MCH 31.1 MCHC 34.7 RDW 13.6 Plt Count 232 Neut % (Auto) 57.3 Lymph % (Auto) 29.1 [place] % (Auto) 10.2 Eos % (Auto) 2.9 Baso % (Auto) 0.5 Neut # (Auto) 3300 Lymph # (Auto) 1700 [place] # (Auto) 600 Eos # (Auto) 200 Baso # (Auto) 0 Sodium 139 Potassium 4.4 Chloride 108 H Carbon Dioxide 29 BUN 18 Creatinine 1.02 Estimated GFR > 60.0 BUN/Creatinine Ratio 17.6 Glucose 100 Hemoglobin A1c Calcium 8.8 Phosphorus 3.0 Magnesium 2.1 Total Bilirubin AST ALT Alkaline Phosphatase Total Creatine Kinase CK-MB (CK-2) CK-MB (CK-2) Rel Index Troponin I 0.037 H Total Protein Albumin Globulin Albumin/Globulin Ratio Triglycerides 94 Cholesterol 186 LDL Cholesterol, Calc 130 H HDL Cholesterol 37 L Lipase TSH SARS-CoV-2 (PCR) Negative 11/07/21 11/07/21 07:37 07:37 WBC RBC Hgb Hct MCV MCH MCHC RDW Plt Count Neut % (Auto) Lymph % (Auto) [place] % (Auto) Eos % (Auto) Baso % (Auto) Neut # (Auto) Lymph # (Auto) [place] # (Auto) Eos # (Auto) Baso # (Auto) Sodium Potassium Chloride Carbon Dioxide BUN Creatinine Estimated GFR BUN/Creatinine Ratio Glucose Hemoglobin A1c 5.2 Calcium Phosphorus Magnesium Total Bilirubin AST ALT Alkaline Phosphatase Total Creatine Kinase CK-MB (CK-2) CK-MB (CK-2) Rel Index Troponin I Total Protein Albumin Globulin Albumin/Globulin Ratio Triglycerides Cholesterol LDL Cholesterol, Calc HDL Cholesterol Lipase TSH 2.67 SARS-CoV-2 (PCR) [facility] Medical History Atrial fibrillation (02/01/13) 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) Elevated blood pressure reading without diagnosis of hypertension [place] History of colonic polyps (02/01/13) History of renal calculi (02/01/13) Hyperlipidemia (02/01/13) Hypertension Paroxysmal a-fib Surgical History Status post hernia repair Social History household members: significant other Smoking Status: Never smoker Discharge Plan Discharge Plan Patient Disposition: Home Discharge orders & Medications Prescriptions: New aspirin 81 mg Tablet,Delayed Release (Dr/Ec) 81 mg PO DAILY Qty: 60 0RF carvedilol [Coreg] 3.125 mg Tablet 3.125 mg PO BID Qty: 120 0RF famotidine 40 mg tablet 40 mg PO BID Qty: 120 0RF sucralfate 1 gram Tablet 1 gm PO ACHS Qty: 240 0RF atorvastatin [Lipitor] 10 mg tablet 10 mg PO BEDTIME Qty: 60 0RF omega 4-[id number]-[id number]-fish oil [Fish Oil] 1,000 mg (120 mg-180 mg) capsule 1 cap PO DAILY Qty: 60 0RF Discontinued amlodipine 5 mg tablet 5 mg PO DAILY 0RF Follow up/Referrals: Joseph Carr DO [Primary Care Provider] - Diet/Activity/Treatments Diet: Low-fat and Low-cholesterol Activity: TOLERATED Skin/Wound/Dressing Care Report to your healthcare provider any signs of infection, such as:: chills, fever, night sweats and increased pain Discharge Data Primary Care Provider: Joseph Carr Attending Provider: Celeste Triana I
--- NOTE | 2021-11-07 18:45 | DI.NM.S_ITS ---
DATE OF SERVICE: 11/07/2021 PROCEDURE PERFORMED: Exercise treadmill stress and rest myocardial perfusion imaging with gating to assess ejection fraction and regional wall motion. INDICATIONS: The patient is a 76-year-old male with a history of paroxysmal atrial fibrillation and hypertension, admitted with chest discomfort and borderline troponin. ORDERING PROVIDER: Celeste Triana PA-C. EXERCISE TREADMILL TESTING: The patient was able to exercise for 7 minutes, 43 seconds on a standard Georges protocol, suggesting excellent exercise capacity with an AMELIA of -31%. He had a normal heart rate and blood pressure response to exercise, achieving a maximum heart rate of 145 BPM (101% of his predicted maximum). He had no chest discomfort. His resting ECG is normal and no apparent ST-segment shifts with exercise although significant motion artifact makes assessment challenging. However, on the immediate post stress recovery tracings, there is no significant ST depression. There were no apparent arrhythmias. At 6 minutes and 17 seconds of exercise at a heart rate of 133 BPM, 24.6 millicuries of technetium-99m Myoview was injected and he was imaged 60 minutes later using a gated SPECT acquisition protocol. Earlier in the day while at rest, he had been injected with 11.8 millicuries of technetium-99m Myoview and was imaged 75 minutes later, again using a gated SPECT acquisition protocol. FINDINGS: 1. Raw data: There is good myocardial tracer uptake. The lung/heart ratio is normal at 0.37 with a normal TID ratio of 0.89. 2. Quantitated gated SPECT: Post-stress ejection fraction is estimated at 82% without any focal wall motion abnormality. Resting ejection fraction is 81% with an end-diastolic volume of 69 mL. There appears to be slightly increased right ventricular tracer uptake which can be a sign of a right ventricular overload condition. 3. Myocardial perfusion imaging: Post-stress supine images shows a normal myocardial perfusion pattern without any significant perfusion defects, supported by normal perfusion imaging in the prone position. The resting images show an identical perfusion pattern without any clear areas of improvement. IMPRESSION: 1. Normal myocardial perfusion study. 2. No evidence of myocardial ischemia or previous myocardial infarction. 3. Normal left ventricular systolic function without any focal wall motion abnormality. 4. Excellent exercise capacity without angina or ECG evidence of ischemia. 5. There appears to be mildly increased tracer uptake in the right ventricular free wall which can be a sign of a right ventricular overload condition; clinical correlation is recommended. 6. Compared to the previous nuclear perfusion study of 02/07/2013, there has been no significant change with an identical perfusion pattern and similar ejection fraction. Juan Huddleston - TENZIN/laura/savana doc#: [id number]/job#: [id number] dd: 11/07/2021 16:51:00 dt: 11/07/2021 18:35:00 DICTATING MD/COPIES TO: Dillon Proctor MD; Celeste Triana M.D. COPIES MNE: OBEY;
== END 2021-11-07 18:12 | disposition home or self-care (01) ==
LOC: ED 11-07 00:34 → AC 11-07 00:45
PROVIDERS: Admitting Provider Emergency Medicine; Emergency Provider Emergency Medicine; PCP Family Medicine; Visit Provider Emergency Medicine
DX: R07.9 Chest pain, unspecified (principal); I10 Essential (primary) hypertension; I48.0 Paroxysmal atrial fibrillation; E78.5 Hyperlipidemia, unspecified; F41.9 Anxiety disorder, unspecified; Z20.822 Contact with and (suspected) exposure to COVID-19
CPT/HCPCS: 36415; 71045; 78452; 80048; 80053; 80061; 82550; 83036; 83690; 83735; 84100; 84443; 84484; 85025; 87635; 93005; 93010; 93017; 93306; 99284; C9803; G0378; A9270; A9502